=== PATIENT | male | born 1930 | race Caucasian/White ===

== ENCOUNTER 2016-05-21 13:09 | Emergency (ER) | payer OTHER, BC ==
[2016-05-21 13:26] VITALS: BP 103/61; PULSE 98; TEMP 98; BMI 20.9
--- NOTE | 2016-05-21 14:05 | PDOC ---
History of Present Illness - General History Source: Patient Exam Limitations: No Limitations, Physical Impairment (hearing impairment) - History of Present Illness Initial Comments: 05/21/16 14:53 The patient is a 85 year old male with a PMH of DM type 2, HTN and CKD who presents to ED referred from his PCP office. He has been complaining of lower extremity weakness. He states that his "legs give up lately". Two days ago he fell on the ground but didn't hit his head or injured himself. Today in AM he felt weak and had to sit down. He went to his PCP office and he was found to have BGM 79 and nl ECG. He denies chest pain, SOB, palpitations, dizziness. He denies numbness, paresthesia, headache. The pt denies LOC, dysuria, fever, chills. He is compliant with his medications and visits PCP every month. He lives alone. PCP Dr Wilson [phone] <Dulce Anderson - Last Filed: 05/21/16 16:57> <Christopher Casas - Last Filed: 05/21/16 17:04> - General Chief Complaint: Weakness Stated Complaint: FATIGUE, WHEEZING (LOW BLOOD PRESSURE) Time Seen by Provider: 05/21/16 14:04 Past History - Past Medical History Cardiac Disorders: Yes (NE) Dementia: Yes Diabetes: Yes Disorders: Yes (BPH) HTN: Yes - Surgical History Appendectomy: Yes Orthopedic Surgery: Yes (Right knee,Left hand) - Psycho/Social/Smoking Cessation Hx Anxiety: No Suicidal Ideation: No Smoking Status: No Smoking History: Former smoker Have you smoked in the past 12 months: No Number of Cigarettes Smoked Daily: 0 Information on smoking cessation initiated: No Hx Alcohol Use: No Drug/Substance Use Hx: No Hx Substance Use Treatment: No <Dulce Anderson - Last Filed: 05/21/16 16:57> <Christopher Casas - Last Filed: 05/21/16 17:04> - Past Medical History Allergies/Adverse Reactions: Allergies Allergy/AdvReac Type Severity Reaction Status Date / Time No Known Allergies Allergy Verified 05/21/16 13:27 Home Medications: Ambulatory Orders Aspirin Chewable [Ashu Children's Aspirin] 81 mg PO DAILY 03/25/11 Aspirin [Aspirin EC] 81 mg PO DAILY #0 tab.chew 03/26/11 Cyclobenzaprine HCl [Flexeril -] 10 mg PO TID #0 tablet 03/26/11 Dutasteride [Avodart] 0.5 mg PO DAILY 03/26/11 Glipizide [Glucotrol -] 10 mg PO BIDAC #0 tablet 03/26/11 Glipizide [Glucotrol] 10 mg PO BID 03/26/11 Metformin HCl [Glucophage] 500 mg PO ACBK #0 tablet 03/26/11 Simvastatin [Zocor -] 20 mg PO HS #0 tablet 03/26/11 Sitagliptin Phos/Metformin HCl [Janumet 50-1,000 mg Tablet] 1 each PO BID Sitagliptin Phosphate [Januvia] 50 mg PO ACBK #0 tablet 03/26/11 Valsartan [Diovan] 80 mg PO DAILY 03/26/11 Valsartan [Diovan] 80 mg PO DAILY #0 tablet 03/26/11 Review of Systems - Review of Systems Able to Perform ROS?: Yes Comments:: 05/21/16 15:05 REVIEW OF SYSTEMS CONSTITUTIONAL: Absent: fever, chills, diaphoresis HEENT: Absent: rhinorrhea, nasal congestion, throat pain, throat swelling, difficulty swallowing, visual changes CARDIOVASCULAR: Absent: chest pain, syncope, palpitations, irregular heart rate, lightheadedness , peripheral edema RESPIRATORY: Absent: cough, shortness of breath, dyspnea with exertion, orthopnea, wheezing GASTROINTESTINAL: Absent: abdominal pain, abdominal distension, nausea, vomiting, diarrhea, constipation, melena, hematochezia GENITOURINARY: Absent: dysuria, frequency, urgency, hesitancy, hematuria, flank pain, genital pain MUSCULOSKELETAL: Absent: myalgia, arthralgia, joint swelling, back pain, neck pain SKIN: Absent: rash, itching, pallor NEUROLOGIC: lower extremity weakness Absent: headache, focal weakness or paresthesias, dizziness seizure, mental status changes PSYCHIATRIC: Absent: anxiety, depression Is the patient limited Swazi proficient: No <Dulce Anderson - Last Filed: 05/21/16 16:57> *Physical Exam - Vital Signs Last Vital Signs Temp Pulse Resp BP Pulse Ox 98 F 98 H 18 103/61 99 05/21/16 13:22 05/21/16 13:22 05/21/16 13:22 05/21/16 13:22 05/21/16 13:22 - Physical Exam Comments: 05/21/16 15:09 GENERAL: The patient is awake, alert, and fully oriented, in no acute distress. HEAD: Normal with no signs of trauma. EYES: PERRL, extraocular movements intact, sclera anicteric, conjunctiva clear. No ptosis. ENT: Ears normal, nares patent, oropharynx clear without exudates, moist mucous membranes. NECK: Trachea midline, full range of motion, supple. LUNGS: Breath sounds equal, clear to auscultation bilaterally, no wheezes, no crackles, no accessory muscle use. HEART: Regular rate and rhythm, S1, S2 without murmur, rub or gallop. ABDOMEN: Soft, nontender, nondistended, normoactive bowel sounds, no guarding, no rebound. EXTREMITIES: no edema. NEUROLOGICAL: Normal speech, no facial asymmetry, Romberg negative, motor 5/5, sensation intact, gait not observed. PSYCH: Normal mood, normal affect. SKIN: Warm, dry, normal turgor, no rashes or lesions noted <Dulce Anderson - Last Filed: 05/21/16 16:57> - Vital Signs Last Vital Signs Temp Pulse Resp BP Pulse Ox 98 F 98 H 18 103/61 99 05/21/16 13:22 05/21/16 13:22 05/21/16 13:22 05/21/16 13:22 05/21/16 13:22 <Christopher Casas - Last Filed: 05/21/16 17:04> Heart Score/ECG Review - ECG Impressions Comment:: 05/21/16 17:03 Twelve-lead EKG was performed and reviewed by me. There is normal sinus rhythm with a normal rate. rate of 84 Left axis devation. no changes suggestive of acute ischemia <Christopher Casas - Last Filed: 05/21/16 17:04> ED Treatment Course - LABORATORY CBC & Chemistry Diagram: 05/21/16 15:00 05/21/16 15:00 <Dulce Anderson - Last Filed: 05/21/16 16:57> - LABORATORY CBC & Chemistry Diagram: 05/21/16 15:00 05/21/16 15:00 - ADDITIONAL ORDERS Additional order review: Laboratory Results 05/21/16 05/21/16 05/21/16 15:00 15:00 14:39 Sodium 139 Potassium 5.3 H Chloride 106 Carbon Dioxide 26 Anion Gap 7 L BUN 28 H Creatinine 1.9 H D Creat Clearance w eGFR 33.70 Random Glucose 232 H Calcium 9.1 Total Bilirubin 0.7 D AST 11 L D ALT 13 D Alkaline Phosphatase 79 Creatine Kinase 62 Troponin I 0.03 D < 0.02 Total Protein 6.9 Albumin 3.5 TSH 1.37 05/21/16 15:00 RBC 5.14 MCV 85.0 MCHC 33.3 RDW 13.8 MPV 8.2 - Medications Given in the ED: ED Medications Discontinued Medications Generic Name Dose Route Start Last Admin Trade Name Freq PRN Reason Stop Dose Admin Sodium Polystyrene Sulfonate 15 gm 05/21/16 16:25 05/21/16 16:50 Kayexalate - PO 05/21/16 16:26 15 gm ONCE ONE Administration <Christopher Casas - Last Filed: 05/21/16 17:04> Medical Decision Making - Medical Decision Making 05/21/16 15:10 The pt is a 85 male with a PMH of DM, CKD, HTN, who presents with LE weakness. We ordered CMP, CBC, cardiac profile, UA, TSH. Awaiting results. 05/21/16 16:34 We reviewed the results. His Cr is 1.9, close to his baseline and BUN is elevated. His K was elevated to 5.3. Ordered Kayoxelate 15 mg and NS. We called Dr. Silva and discussed. He recommended to discharge the pt from ED and f/u with his PCP as outpatient to check potassium. We informed the pt to drink fluids and continue taking his home medications. <Dulce Anderson - Last Filed: 05/21/16 16:57> *DC/Admit/Observation/Transfer - Discharge Dispostion Admit: No <Dulce Anderson - Last Filed: 05/21/16 16:57> <Christopher Casas - Last Filed: 05/21/16 17:04> Diagnosis at time of Disposition: Weakness - Discharge Dispostion Disposition: HOME Condition at time of disposition: Improved - Referrals Referrals: Honey Wilson MD [Non Staff, Medical] - - Patient Instructions Additional Instructions: Continue taking your home medications. Please see your primary care physician on Tuesday. Stay hydrated over the weekend. Drink plenty of fluids. If your symptoms worsen come back to emergency room as soon as possible.
--- NOTE | 2016-05-21 14:32 | PDOC ---
Attending Attestation - Resident Resident Name: Dulce Anderson - ED Attending Attestation I have performed the following: I have examined & evaluated the patient, The case was reviewed & discussed with the resident, I agree w/resident's findings & plan - HPI HPI: 05/21/16 16:59 85y M hx of DM2, htn, ckd referred from pcp for weakness. Pt states that when he is ambulating, he will feel like his legs are weak and his legs give out. He does state that he has pain in his L knee bu that is chronic. He denies any dizziness, headache numnbess/tingling/weakness, fever/chills, dyruia, cough, chest pain, back pain. he went to his PMD who checked his BGM and it was 79 and he was sent to the ED for evaluation. the pts exam is unremarkable. pts labs reiewed - cr at baseline. k+ slightly elevated, will give some kayexalate ekg unremarkble discussed wit hdr. marquez - will obtain 2nd trop, if neg will d/c the pt with pmd fu on tuesday - Physicial Exam PE: 05/24/16 20:08 see above - Medical Decision Making 05/24/16 20:08 see above
[2016-05-21 15:16] LABS: MCH 28.3 pg (25.7-33.7); MCHC 33.3 g/dl (32.0-35.9); MEAN PLT VOLUME 8.2 fl (7.5-11.1); PLATELET COUNT 238 K/MM3 (134-434); RDW 13.8 % (11.9-15.9); WHITE BLOOD COUNT 9.7 K/mm3 (4.0-10.0)
[2016-05-21 15:44] LABS: TROPONIN I 0.03 ng/ml (0.00-0.05)
[2016-05-21 15:52] LABS: ALBUMIN 3.5 g/dl (3.4-5.0); BILIRUBIN,TOTAL 0.7 mg/dL (0.2-1.0); CALCIUM 9.1 mg/dL (8.5-10.1); CREATININE 1.9 mg/dL (0.7-1.3); TOT PROT 6.9 g/dl (6.4-8.2)
[2016-05-21 16:00] LABS: THYROID STIMULATING HORMONE 1.37 uIU/ml (0.358-3.74)
[2016-05-21] MEDS ORDERED: SODIUM CHLORIDE 1,000 ML IV STA (16:11)
[2016-05-21] MEDS ORDERED: SODIUM POLYSTYRENE SULFONATE 15 GM/60 ML BOTTLE PO ONE (16:25)
[2016-05-21] MEDS ORDERED: INSULIN SLIDING SCALE (NOVOLOG) 1 VIAL SQ SCH (16:30)
[2016-05-21] MEDS ORDERED: SODIUM POLYSTYRENE SULFONATE 15 GM/60 ML BOTTLE ONE (16:55)
[2016-05-21 17:33] LABS: URINE APPEARANCE CLEAR; URINE BILIRUBIN NEGATIVE (NEGATIVE); URINE BLOOD NEGATIVE (NEGATIVE); URINE COLOR DKYELLOW; URINE GLUCOSE (UA) 1+ (NEGATIVE); URINE KETONE TRACE (NEGATIVE); URINE NITRITE NEGATIVE (NEGATIVE); URINE UROBILINOGEN 2.0 E.U/dl E.U./dl (0.2-1.0)
[2016-05-21 17:34] LABS: URINE LEUK ESTERASE 1+ (NEGATIVE); URINE PROTEIN 2+ (NEGATIVE)
[2016-05-21 17:37] LABS: URINE BACTERIA RARE /hpf (NONE SEEN); URINE HYALINE CAST 23 /lpf; URINE MUCUS RARE; URINE RBC 2 /hpf (0-3); URINE WBC 14 /hpf (3-5)
--- NOTE | 2016-05-23 11:18 | EKG ---
Test Reason : Blood Pressure : / mmHG Vent. Rate : 084 BPM Atrial Rate : 084 BPM P-R Int : 188 ms QRS Dur : 092 ms QT Int : 386 ms P-R-T Axes : 057 -33 035 degrees QTc Int : 456 ms NORMAL SINUS RHYTHM LEFT AXIS DEVIATION ABNORMAL ECG WHEN COMPARED WITH ECG OF 26-MAR-2011 01:17, NO SIGNIFICANT CHANGE WAS FOUND Confirmed by FIGUEROA KIRK MD ([id number]) on 05/23/2016 11:18:10 AM Referred By: Confirmed By:FIGUEROA KIRK MD
== END 2016-05-21 18:35 | disposition home or self-care (01) ==
LOC: JER 13:09
PROC: 3E0337Z Introduction of Electrolytic and Water Balance Substance into Peripheral Vein, Percutaneous Approach (ICD-10-PCS; principal; 2016-05-21)
DX: M62.81 Muscle weakness (generalized) (principal); E87.5 Hyperkalemia; I10 Essential (primary) hypertension; E11.9 Type 2 diabetes mellitus without complications; Z79.84 Long term (current) use of oral hypoglycemic drugs; F03.90 Unspecified dementia, unspecified severity, without behavioral disturbance, psychotic disturbance, mood disturbance, and anxiety; I25.2 Old myocardial infarction
CPT/HCPCS: 36415; 80053; 81003; 81015; 82550; 84443; 84484; 85027; 93005; 93010; 96360; 99284-25

== ENCOUNTER 2017-01-11 15:34 | Emergency (ER) | payer OTHER, BC ==
--- NOTE | 2017-01-11 15:47 | PDOC ---
History of Present Illness - General Chief Complaint: Blood Sugar Problem Stated Complaint: SUGAR PROBLEM Time Seen by Provider: 01/11/17 15:39 - History of Present Illness Initial Comments: 01/11/17 16:20 The patient is an 86 year old male with a history of DM, HTN, CAD, dementia who presents for evaluation of high blood sugar. The patient is brought in by EMS who assist in providing the history. They report that the patient's home health aid checked the patient's blood sugar and it was elevated to 570 prompting the home health aid to call EMS for presentation to the ED. The patient currently denies any complaints and denies fevers, chills, SOB, chest pain, nausea, vomiting, abdominal pain, or changes with urination or bowel movements. Past History - Past Medical History Allergies/Adverse Reactions: Allergies Allergy/AdvReac Type Severity Reaction Status Date / Time No Known Allergies Allergy Verified 01/11/17 15:50 Home Medications: Ambulatory Orders Donepezil HCl [Aricept -] 5 mg PO DAILY 01/11/17 Insulin (Levemir) [Levemir Flexpen -] 22 units SQ HS 01/11/17 Insulin Lispro [Humalog] 6 unit SQ TID 01/11/17 Ramipril 2.5 mg PO DAILY 01/11/17 Cardiac Disorders: Yes (PR) Dementia: Yes Diabetes: Yes Disorders: Yes (BPH) HTN: Yes - Surgical History Appendectomy: Yes Orthopedic Surgery: Yes (Right knee,Left hand) - Suicide/Smoking/Psychosocial Hx Smoking Status: No Smoking History: Former smoker Have you smoked in the past 12 months: No Number of Cigarettes Smoked Daily: 0 Hx Alcohol Use: No Drug/Substance Use Hx: No Hx Substance Use Treatment: No Review of Systems - Review of Systems Comments:: 01/11/17 16:23 Constitutional: No fevers, chills, fatigue, malaise HEENT: No Rhinorrhea, nasal congestion, Cardiovascular: No chest pain, syncope, palpitations, lightheadedness Respiratory: No Cough, SOB, Hemoptysis, Gastrointestinal: No Abdominal pain, Nausea, Vomiting, Constipation, Diarrhea, Melena Genitourinary: No Dysuria, Frequency, Urgency, Hesitancy, Hematuria, Flank pain Musculoskeletal: No Myalgia, arthralgia Skin: No rashes, bruising, pallor Neurologic: No Headache, Dizziness, Numbness, Weakness, or Tingling Psychiatric: No Hallucinations. No SI or HI *Physical Exam - Physical Exam Comments: 01/11/17 16:23 General Appearance: Nourished. No Apparent Distress HEENT: EOMI, LUDIVINA. No Pharyngeal Erythema, Tonsillar Exudate, Tonsillar Erythema Neck: No Cervical Lymphadenopathy Respiratory/Chest: Lungs Clear, Normal Breath Sounds. No Crackles, Rales, Rhonchi, Wheezing Cardiovascular: Regular Rhythm, Regular Rate. No Murmur, Gallops, Rubs Gastrointestinal/Abdominal: Normal Bowel Sounds, Soft. No Guarding, Rebound, Tenderness Musculoskeletal: No CVA Tenderness Extremity: Normal Capillary Refill Integumentary: Normal Color, Dry, Warm Neurologic: water inspector II-XII NML intact, Fully Oriented, Alert, Normal Mood/Affect, Normal Response, ED Treatment Course - LABORATORY CBC & Chemistry Diagram: 01/11/17 16:08 01/11/17 16:08 Medical Decision Making - Medical Decision Making 01/11/17 16:24 The patient is an 86 year old male with a history of DM, HTN, CAD, dementia who presents for evaluation of high blood sugar. Differential includes but is not limited to: DKA, HHS, Hyperglycemia, infectious, metabolic derangement. Given the patient's lack of complaints and normal physical exam, it is likely he is hyperglycemic. We will obtain a cbc, cmp, vbg, acetone, UA to evaluate for DKA or HHS and other etiologies. We will start the patient on IV fluids and continue to monitor and reassess. 01/11/17 18:26 CBC, vbg, acetone are unremarkable. CMP demonstrates a glucose in 400s. UA is still pending. Repeat finger stick after 1 L of NS is 414. We will administer 10 Units of SQ insulin here in the ED and continue to monitor and reassess. 01/11/17 18:43 Pt's friend Mr. Escobedo was present earlier and asked to be called if anything is needed for the pt including transportation home. He can be contacted at *DC/Admit/Observation/Transfer Diagnosis at time of Disposition: Hyperglycemia - Discharge Dispostion Disposition: HOME Condition at time of disposition: Improved Admit: No - Referrals Referrals: Karthik Harmon MD [Primary Care Provider] - - Patient Instructions Printed Discharge Instructions: DI for Hyperglycemia -- Adult Additional Instructions: Please return to the ER if you experience concerning or worsening symptoms including fevers, chills, difficulty breathing, chest pain, or vomiting. You were seen in the ER for high blood sugar. Your lab results were normal here in the ER. You will need to continue taking your insulin at home as well as all your medications. It is extremely important that you call your primary care provider to make an appointment in 2-3 days to discuss further management of your diabetes.
[2017-01-11 15:50] VITALS: BMI 21.7
[2017-01-11] MEDS ORDERED: SODIUM CHLORIDE 1,000 ML IV STA ×2 (15:50→18:18)
[2017-01-11 16:19] LABS: BASOPHIL 0.5 % (0-2.0); EOSINOPHIL 1.5 % (0-4.5); MCHC 33.3 g/dl (32.0-35.9); MEAN PLT VOLUME 7.8 fl (7.5-11.1); NEUTROPHILS 71.2 % (42.8-82.8); PLATELET COUNT 204 K/MM3 (134-434); RDW 13.8 % (11.9-15.9); WHITE BLOOD COUNT 6.7 K/mm3 (4.0-10.0)
[2017-01-11 16:28] LABS: VENOUS PH 7.28 (7.32-7.42)
[2017-01-11 16:29] LABS: VENOUS BLOOD GAS HCO3 25.1 meq/L (19-25)
[2017-01-11 16:46] LABS: ALBUMIN 3.7 g/dl (3.4-5.0); ANION GAP 10 (8-16); BILIRUBIN,TOTAL 0.4 mg/dL (0.2-1.0); CALCIUM 8.9 mg/dL (8.5-10.1); CO2 25 mmol/L (21-32); CREATININE 1.7 mg/dL (0.7-1.3); SGOT/AST 6 U/L (15-37); SGPT/ALT 15 U/L (12-78); TOT PROT 7.4 g/dl (6.4-8.2)
[2017-01-11 16:48] LABS: ALK PHOS 102 U/L (45-117)
[2017-01-11 16:52] LABS: GLUCOSE,RANDOM 472 mg/dL (74-106)
[2017-01-11 17:42] VITALS: BP 162/89; PULSE 69; TEMP 97.8
[2017-01-11 18:11] LABS: URINE APPEARANCE CLEAR; URINE BILIRUBIN NEGATIVE (NEGATIVE); URINE BLOOD NEGATIVE (NEGATIVE); URINE COLOR STRAW; URINE GLUCOSE (UA) 3+ (NEGATIVE); URINE KETONE NEGATIVE (NEGATIVE); URINE NITRITE NEGATIVE (NEGATIVE); URINE PROTEIN NEGATIVE (NEGATIVE); URINE UROBILINOGEN NEGATIVE mg/dL (0.2-1.0)
[2017-01-11] MEDS ORDERED: INSULIN REGULAR HUMAN 100 UNITS/ML *VIAL SQ ONE (18:18)
[2017-01-11] MEDS ORDERED: INSULIN REGULAR HUMAN 100 UNITS/ML *VIAL ONE (18:24)
--- NOTE | 2017-01-11 19:19 | PDOC ---
Attending Attestation - Resident Resident Name: Gilberto Gongel - ED Attending Attestation I have performed the following: I have examined & evaluated the patient, The case was reviewed & discussed with the resident, I agree w/resident's findings & plan, Exceptions are as noted - HPI HPI: 01/11/17 19:17 86 YO MALE was seen by VN and he was found to have elevated glucose -pt has no complaints -acetone negative ,pt not in DKA -no nausea,no fever,no abd pain ,no chest pain - Physicial Exam PE: 01/12/17 02:25 86-year-old male in no acute distress. Head normocephalic, atraumatic Neck supple Lungs clear to auscultation bilaterally CVS regular rate and rhythm S1, S2 Abdomen soft, nontender, nondistended. Extremities no deformity. Skin warm and dry. Neuro patient is alert and conversant, moving all extremities - Medical Decision Making 01/12/17 02:26 Patient was not found to be in diabetic ketoacidosis. He is acetone negative. He was given insulin for his elevated glucose and a family friend picked him up and took him home
[2017-01-11 21:25] LABS: URINE LEUK ESTERASE Negative (NEGATIVE)
--- NOTE | 2017-01-14 11:21 | EKG ---
Test Reason : Blood Pressure : / mmHG Vent. Rate : 078 BPM Atrial Rate : 078 BPM P-R Int : 190 ms QRS Dur : 094 ms QT Int : 408 ms P-R-T Axes : 050 -35 030 degrees QTc Int : 465 ms SINUS RHYTHM WITH PREMATURE ATRIAL COMPLEXES LEFT AXIS DEVIATION INCOMPLETE RIGHT BUNDLE BRANCH BLOCK ABNORMAL ECG WHEN COMPARED WITH ECG OF 21-MAY-2016 15:16, PREMATURE ATRIAL COMPLEXES ARE NOW PRESENT INCOMPLETE RIGHT BUNDLE BRANCH BLOCK IS NOW PRESENT Confirmed by BILLIE ALLEN MD ([id number]) on 01/14/2017 11:20:55 AM Referred By: Confirmed By:BILLIE ALLEN MD
== END 2017-01-11 19:26 | disposition home or self-care (01) ==
LOC: JER 15:34
PROC: 3E0337Z Introduction of Electrolytic and Water Balance Substance into Peripheral Vein, Percutaneous Approach (ICD-10-PCS; principal; 2017-01-11)
PROC: 3E013VG Introduction of Insulin into Subcutaneous Tissue, Percutaneous Approach (ICD-10-PCS; 2017-01-11)
DX: E11.65 Type 2 diabetes mellitus with hyperglycemia (principal); I25.10 Atherosclerotic heart disease of native coronary artery without angina pectoris; I10 Essential (primary) hypertension; Z79.4 Long term (current) use of insulin; F03.90 Unspecified dementia, unspecified severity, without behavioral disturbance, psychotic disturbance, mood disturbance, and anxiety; N40.0 Benign prostatic hyperplasia without lower urinary tract symptoms; I25.2 Old myocardial infarction
CPT/HCPCS: 36415; 80053; 81003; 82009; 82803; 85025; 93005; 93010; 96360; 96372; 99284-25

== ENCOUNTER 2017-04-30 15:29 | Observation (INO) | payer BC, OTHER ==
--- NOTE | 2017-04-30 15:36 | PDOC ---
History of Present Illness - General Stated Complaint: LOW BLOOD SUGAR - History of Present Illness Initial Comments: 04/30/17 15:36 Mr. Clark is an 86 yo male w/ pmh of DM, HTN, CAD, dementia BIBA after he was found down outside. Per EMS a passing bystander noticed him wedged between a car and the curb and activated the EMS system. On arrival he was found to have a blood glucose of 27. Oral glucose was given and repeat check yielded a value of 41. After this they gave 250mL of D10 and found repeat BS of 186. On arrival to the ER his glucose was 77. Mr. Clark reports that he took his insulin this morning as well as this afternoon without eating in between. He currently has no complaints; reports falling but denies hitting his head or LOC. The patient denies chest pain, shortness of breath, headache and dizziness. Denies fever, chills, nausea, vomit, diarrhea and constipation. Denies dysuria, frequency, urgency and hematuria. Allergies: NKDA Past History - Past Medical History Allergies/Adverse Reactions: Allergies Allergy/AdvReac Type Severity Reaction Status Date / Time No Known Allergies Allergy Verified 01/11/17 15:50 Home Medications: Ambulatory Orders Donepezil HCl [Aricept -] 5 mg PO DAILY 01/11/17 Insulin (Levemir) [Levemir Flexpen -] 22 units SQ HS 01/11/17 Insulin Lispro [Humalog] 6 unit SQ TID 01/11/17 Ramipril 2.5 mg PO DAILY 01/11/17 Cardiac Disorders: Yes (VT) COPD: No Dementia: Yes Diabetes: Yes Disorders: Yes (BPH) HTN: Yes - Surgical History Appendectomy: Yes Orthopedic Surgery: Yes (Right knee,Left hand) - Suicide/Smoking/Psychosocial Hx Smoking Status: No Smoking History: Former smoker Have you smoked in the past 12 months: No Number of Cigarettes Smoked Daily: 0 Hx Alcohol Use: No Drug/Substance Use Hx: No Substance Use Type: None Hx Substance Use Treatment: No Review of Systems - Review of Systems Comments:: 04/30/17 15:41 GENERAL/CONSTITUTIONAL: +Patient endorses weakness earlier today and fall after his 2nd insulin dose. No fever or chills. Denies Head injury or LOC. HEAD, EYES, EARS, NOSE AND THROAT: No change in vision. No ear pain or discharge. No sore throat. CARDIOVASCULAR: No chest pain or shortness of breath RESPIRATORY: No cough, wheezing, or hemoptysis. GASTROINTESTINAL: No nausea, vomiting, diarrhea or constipation. GENITOURINARY: No dysuria, frequency, or change in urination. MUSCULOSKELETAL: No joint or muscle swelling or pain. No neck or back pain. SKIN: No rash NEUROLOGIC: No headache, vertigo, loss of consciousness, or change in strength/ sensation. ENDOCRINE: No increased thirst. No abnormal weight change HEMATOLOGIC/LYMPHATIC: No anemia, easy bleeding, or history of blood clots. ALLERGIC/IMMUNOLOGIC: No hives or skin allergy. *Physical Exam - Physical Exam Comments: 04/30/17 15:42 GENERAL: Awake, alert, and fully oriented, in no acute distress HEAD: No signs of trauma, normocephalic, atraumatic EYES: PERRLA, EOMI, sclera anicteric, conjunctiva clear ENT: Auricles normal inspection, hearing grossly normal, nares patent, oropharynx clear without exudates. Moist mucosa NECK: Normal ROM, supple, no lymphadenopathy, JVD, or masses LUNGS: No distress, speaks full sentences, clear to auscultation bilaterally HEART: Regular rate and rhythm, normal S1 and S2, no murmurs, rubs or gallops, peripheral pulses normal and equal bilaterally. ABDOMEN: Soft, nontender, normoactive bowel sounds. No guarding, no rebound. No masses EXTREMITIES: Normal inspection, Normal range of motion, no edema. No clubbing or cyanosis. NEUROLOGICAL: Cranial nerves II through XII grossly intact. Normal speech, normal gait, no focal sensorimotor deficits SKIN: Warm, Dry, normal turgor, no rashes or lesions noted. ED Treatment Course - LABORATORY CBC & Chemistry Diagram: 05/01/17 06:00 05/01/17 06:00 Medical Decision Making - Medical Decision Making 04/30/17 15:55 Mr. Clark is an 86 yo male w/ pmh as described who presents following hypoglycemic episode. Patient resting comfortably. CBC/CMP/Head CT/UA/EKG sent for evaluation. Patient given sandwich and orange juice to maintain glucose load. 04/30/17 18:04 UA revealed slight UTI. Rocephin given for treatment. 04/30/17 18:17 Repeat finger stick 225. 04/30/17 18:43 Patient signed out to Dr. Smith for further care. *DC/Admit/Observation/Transfer Diagnosis at time of Disposition: UTI (urinary tract infection) Qualifiers: Urinary tract infection type: site unspecified Hematuria presence: without hematuria Qualified Code(s): N39.0 - Urinary tract infection, site not specified - Discharge Dispostion Condition at time of disposition: Stable - Referrals - Patient Instructions - Post Discharge Activity
--- NOTE | 2017-04-30 15:45 | PDOC ---
Attending Attestation - Resident Resident Name: De Larsen - ED Attending Attestation I have performed the following: I have examined & evaluated the patient, The case was reviewed & discussed with the resident, I agree w/resident's findings & plan, Exceptions are as noted - HPI HPI: 04/30/17 15:44 86y M IDDM presents with complaint of hypoglycemia. Pt was found down by his car by bystander who called EMS. EMS found the pt a bit altered with BGM of 27, gave oral glucose improved to 41s and given D10 with improvement of blood sugar to 186. Hre his BGM was 70s. Pt denies any cp, sob, abd pain, n/v, dirarhea, dysuria, fever/chills, cough. States he feels 'great' right now. Pt unabl to tell me why he didnt eat this morning, but states no one told him that he that he should eat after he took insulin. GENERAL: The patient is awake, alert and oriented x 2, Nontoxic - in no acute distress. dischevelled appearing HEAD: Normocephalic, atraumatic without focal tenderness. EYES: extraocular movements intact, sclera anicteric, conjunctiva clear. ENT: Normal voice, Moist mucous membranes. NECK: Normal range of motion, supple. LUNGS: Breath sounds equal, clear to auscultation bilaterally. No wheezes, no rhonchi, no rales. HEART: Regular rate and rhythm, normal S1 and S2 without murmur, rub or gallop. ABDOMEN: Soft, nontender, normoactive bowel sounds. No guarding, no rebound. No CVA tenderness EXTREMITIES: Normal range of motion, no edema. moving all 4 extremities spontaneously and symmetrically. MSK: no focal midline tenderness in cervical/thoracic/lumbar region. NEUROLOGICAL: No facial assymetry, Normal speech, PSYCH: Normal mood, normal affect. SKIN: Warm, Dry, normal turgor, Suspect his hypoglycmia secondary to his insulin use without eating will ck labs, ua to r/o metabolic derangement, occult infectoin pt given complex carbs via sandwich will obs the tp to make sure he is able to maintain his blood sugar - Physicial Exam PE: 05/01/17 16:14 see above - Medical Decision Making 05/01/17 16:14 see above Heart Score/ECG Review - ECG Impressions Comment:: 04/30/17 16:41 Twelve-lead EKG was performed and reviewed by me. There is normal sinus rhythm with a rate of [address] deviation No [address] changes suggestive of acute ischemia
[2017-04-30 16:40] LABS: BASO % 0.5 % (0-2.0); EOS % 0.3 % (0-4.5); HEMOGLOBIN 14.7 GM/dL (11.7-16.9); LYMPH % 8.7 % (8-40); MCH 28.4 pg (25.7-33.7); MCHC 33.3 g/dl (32.0-35.9); MEAN CELL VOLUME 85.3 fl (80-96); MEAN PLT VOLUME 7.8 fl (7.5-11.1); MONO % 5.2 % (3.8-10.2); NEUT % 85.3 % (42.8-82.8); PLATELET COUNT 199 K/MM3 (134-434); RBC 5.16 M/mm3 (4.00-5.60); RDW 14.1 % (11.9-15.9); WHITE BLOOD COUNT 11.4 K/mm3 (4.0-10.0)
[2017-04-30 16:59] LABS: URINE APPEARANCE CLEAR; URINE BILIRUBIN NEGATIVE (NEGATIVE); URINE BLOOD 1+ (NEGATIVE); URINE COLOR YELLOW; URINE GLUCOSE (UA) 1+ (NEGATIVE); URINE KETONE NEGATIVE (NEGATIVE); URINE NITRITE POSITIVE (NEGATIVE)
[2017-04-30 17:00] LABS: URINE LEUK ESTERASE 1+ (NEGATIVE); URINE PROTEIN 2+ (NEGATIVE)
[2017-04-30 17:02] LABS: EPI CELLS RARE /HPF (FEW); URINE BACTERIA RARE /hpf (NONE SEEN); URINE HYALINE CAST 2 /lpf; URINE MUCUS FEW
[2017-04-30 17:08] LABS: ALBUMIN 3.5 g/dl (3.4-5.0); ALK PHOS 81 U/L (45-117); ANION GAP 9 (8-16); BILIRUBIN,TOTAL 0.5 mg/dL (0.2-1.0); BLOOD UREA NITROGEN 17 mg/dL (7-18); CHLORIDE 107 mmol/L (98-107); CO2 25 mmol/L (21-32); CREATININE 1.6 mg/dL (0.7-1.3); GLUCOSE,RANDOM 198 mg/dL (74-106); POTASSIUM 3.9 mmol/L (3.5-5.1); SGOT/AST 11 U/L (15-37); SGPT/ALT 14 U/L (12-78); SODIUM 141 mmol/L (136-145); TOT PROT 7.1 g/dl (6.4-8.2)
[2017-04-30] MEDS ORDERED: cefTRIAXone 1 GM/50 ML BAG (PRE-DOCKED) IVPB ONE (17:54)
[2017-04-30] MEDS ORDERED: CEFTRIAXONE 1 GM/50 ML BAG ONE (18:18)
--- NOTE | 2017-04-30 20:40 | PDOC ---
*Physical Exam - Vital Signs Last Vital Signs Temp Pulse Resp BP Pulse Ox 98 F 87 20 143/92 99 04/30/17 19:08 04/30/17 19:08 04/30/17 19:08 04/30/17 19:08 04/30/17 19:08 - Physical Exam Comments: 04/30/17 21:14 GENERAL: Awake, alert, in no acute distress, eating happily HEAD: No signs of trauma, normocephalic, atraumatic EYES: PERRLA, EOMI, sclera anicteric, conjunctiva clear ENT: Auricles normal inspection, hearing grossly normal, nares patent, oropharynx clear without exudates. Moist mucosa NECK: Normal ROM, supple, no lymphadenopathy, JVD, or masses LUNGS: No distress, speaks full sentences, clear to auscultation bilaterally HEART: Regular rate and rhythm, normal S1 and S2, no murmurs, rubs or gallops, peripheral pulses normal and equal bilaterally. SKIN: Warm, Dry, normal turgor, no rashes or lesions noted. ED Treatment Course - LABORATORY CBC & Chemistry Diagram: 04/30/17 16:37 04/30/17 16:37 - ADDITIONAL ORDERS Additional order review: Laboratory Results 04/30/17 04/30/17 04/30/17 18:16 16:43 16:37 Sodium 141 Potassium 3.9 D Chloride 107 Carbon Dioxide 25 Anion Gap 9 BUN 17 D Creatinine 1.6 H Creat Clearance w eGFR 41.00 POC Glucometer 255.33118 Random Glucose 198 H D Calcium 9.0 Total Bilirubin 0.5 D AST 11 L D ALT 14 Alkaline Phosphatase 81 D Total Protein 7.1 Albumin 3.5 Urine Color Yellow Urine Appearance Clear Urine pH 5.0 Ur Specific [place] 1.016 Urine Protein 2+ H Urine Glucose (UA) 1+ H Urine Ketones Negative Urine Blood 1+ H Urine Nitrite Positive Urine Bilirubin Negative Urine Urobilinogen 2.0 Ur Leukocyte Esterase 1+ H Urine WBC (Auto) 21 Urine RBC (Auto) <1 Ur Epithelial Cells Rare Urine Bacteria Rare Hyaline Casts 2 Urine Mucus Few 04/30/17 15:36 Sodium Potassium Chloride Carbon Dioxide Anion Gap BUN Creatinine Creat Clearance w eGFR POC Glucometer 77.68443 Random Glucose Calcium Total Bilirubin AST ALT Alkaline Phosphatase Total Protein Albumin Urine Color Urine Appearance Urine pH Ur Specific [place] Urine Protein Urine Glucose (UA) Urine Ketones Urine Blood Urine Nitrite Urine Bilirubin Urine Urobilinogen Ur Leukocyte Esterase Urine WBC (Auto) Urine RBC (Auto) Ur Epithelial Cells Urine Bacteria Hyaline Casts Urine Mucus 04/30/17 04/30/17 04/30/17 18:16 16:37 15:36 RBC 5.16 MCV 85.3 MCHC 33.3 RDW 14.1 MPV 7.8 Neutrophils % 85.3 H Lymphocytes % 8.7 D Monocytes % 5.2 Eosinophils % 0.3 Basophils % 0.5 POC Glucometer 255.03210 77.77458 - RADIOLOGY Radiology Studies Ordered: Category Date Time Status CXRPORT [CHEST X-RAY PORTABLE*] [RAD] Stat Radiology 04/30/17 18:52 Taken - Medications Given in the ED: ED Medications Discontinued Medications Generic Name Dose Route Start Last Admin Trade Name Freq PRN Reason Stop Dose Admin Ceftriaxone Sodium 1 gm 04/30/17 17:54 04/30/17 18:19 Rocephin 1gm Ivpb (Pre-Docked) IVPB 04/30/17 17:55 1 gm ONCE ONE Administration Protocol Medical Decision Making - Medical Decision Making 04/30/17 20:[address] Larsen. Patient is 86M with history of DM, HTN, CAD , dementia BIBA after he was found down outside confused with blood sugar of 27. Patient normally lives at home with an aide coming by to help. Patient also has UTI, given rocephin. CT pending. Will admit. Dr Roldan accepted admission to obs med/surg. 04/30/17 21:[address] Randhawa regarding patient. 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 Patient has no tenderness in ear , mastoid, head or neck. Patient states that he has no pain and feels fine. Do not believe patient has mastoiditis clinically. Will continue to treat with just ceftriaxone. Imaging results discussed with medicine resident. *DC/Admit/Observation/Transfer Diagnosis at time of Disposition: UTI (urinary tract infection) - Discharge Dispostion Condition at time of disposition: Stable Admit: Yes - Referrals - Patient Instructions - Post Discharge Activity
--- NOTE | 2017-04-30 22:30 | HP ---
CHIEF COMPLAINT: weakness PCP:none HISTORY OF PRESENT ILLNESS: The patient is a 85 year old male with a PMH of DM type 2, HTN and CKD who presents to ED brought by ambulance after he was found outside. The pt left his house but somebody noticed him loosing his balance and slumping over the car next to him. He states that it happened to him many times in the past. Today he took his morning insulin but didn't have anything to eat. He denies hitting his head, any other injury, LOC, seizures, urinating, tongue biting, dizziness, palpitations. He denies chest pain, SOB, palpitations, dizziness. On EMS arrival his fingerstick was 27, after glucose went up to 41. He was given dextrose that improved his sugar to 186. The pt denies dysuria, fever, chills. He is compliant with taking 18 units of Insulin twice a day. No other medications and he is currently not following any primary care doctor. He lives alone and was told that he needs to use walker. ER course was notable for: (1)CT head, CXR (2)WBC 11.4 (3)UA 1+ leuk est, 21 WBC Recent Travel:no PAST MEDICAL HISTORY: as above PAST SURGICAL HISTORY: right knee replacement Social History: Smoking:quit 20 years ago Alcohol:no Drugs:no Lives alone, gets help from 2 sons and daughter. Denies VNS. Family History: Father due to [place] at age 42, Mother: doesn't remember her cause of Allergies No Known Allergies Allergy (Verified 01/11/17 15:50) HOME MEDICATIONS: Home Medications Medication Instructions Recorded Donepezil HCl [Aricept -] 5 mg PO DAILY 01/11/17 Insulin (Levemir) [Levemir Flexpen 22 units SQ HS 01/11/17 -] Insulin Lispro [Humalog] 6 unit SQ TID 01/11/17 Ramipril 2.5 mg PO DAILY 01/11/17 REVIEW OF SYSTEMS CONSTITUTIONAL: Absent: fever, chills, diaphoresis, generalized weakness, malaise HEENT: Absent: rhinorrhea, nasal congestion, throat pain, throat swelling, difficulty swallowing CARDIOVASCULAR: Absent: chest pain, syncope, palpitations, irregular heart rate, lightheadedness , RESPIRATORY: Absent: cough, shortness of breath, dyspnea with exertion, orthopnea, wheezing, GASTROINTESTINAL: Absent: abdominal pain, abdominal distension, nausea, vomiting, diarrhea, constipation, GENITOURINARY: Absent: dysuria, frequency, urgency, hesitancy, hematuria, flank pain, genital pain MUSCULOSKELETAL: Absent: myalgia, arthralgia, joint swelling, back pain, neck pain HEMATOLOGIC/IMMUNOLOGIC: Absent: easy bleeding, easy bruising, lymphadenopathy, frequent infections ENDOCRINE: Absent: unexplained weight gain, unexplained weight loss, NEUROLOGIC: Absent: headache, focal weakness or paresthesias, dizziness PSYCHIATRIC: Absent: anxiety, depression PHYSICAL EXAMINATION Vital Signs - 24 hr 04/30/17 04/30/17 04/30/17 15:46 17:30 19:08 Temperature 97 F L 98 F Pulse Rate 93 H Pulse Rate [ 85 87 Apical] Respiratory 20 20 20 Rate Blood Pressure 197/85 Blood Pressure 147/85 143/92 [Right Arm] O2 Sat by Pulse 97 100 99 Oximetry (%) 04/30/17 21:25 Temperature 98.1 F Pulse Rate Pulse Rate [ 85 Apical] Respiratory 20 Rate Blood Pressure Blood Pressure 156/90 [Right Arm] O2 Sat by Pulse 98 Oximetry (%) GENERAL: Awake, alert, and fully oriented, in no acute distress. HEAD: Normal with no signs of trauma, no tenderness, abrasions. EYES: Pupils equal, round and reactive to light, extraocular movements intact, sclera anicteric, conjunctiva clear. EARS, NOSE, THROAT: Ears normal, no discharge, no tenderness, nares patent, oropharynx clear without exudates. Moist mucous membranes. NECK: Normal range of motion, supple without lymphadenopathy. LUNGS: Breath sounds equal, clear to auscultation bilaterally. No wheezes, and no crackles. No accessory muscle use. HEART: Regular rate and rhythm, normal S1 and S2, 3/6 systolic murmur over right second sternal border,no rub or gallop. ABDOMEN: Soft, nontender, not distended, normoactive bowel sounds, no guarding, no rebound, no masses. MUSCULOSKELETAL: Normal range of motion at all joints. No bony deformities or tenderness. No CVA tenderness. UPPER EXTREMITIES: 2+ pulses, warm, no peripheral edema. LOWER EXTREMITIES: 2+ pulses, warm, no peripheral edema. NEUROLOGICAL: Normal speech, no facial asymmetry, motor 5/5, no sensation changes. PSYCHIATRIC: Cooperative. Good eye contact. Appropriate mood and affect. SKIN: Warm, dry, normal turgor, no rashes or lesions noted. Laboratory Results - last 24 hr 04/30/17 04/30/17 04/30/17 15:36 16:37 16:37 WBC 11.4 H D RBC 5.16 Hgb 14.7 Hct 44.0 MCV 85.3 MCH 28.4 MCHC 33.3 RDW 14.1 Plt Count 199 MPV 7.8 Neutrophils % 85.3 H Lymphocytes % 8.7 D Monocytes % 5.2 Eosinophils % 0.3 Basophils % 0.5 Sodium 141 Potassium 3.9 D Chloride 107 Carbon Dioxide 25 Anion Gap 9 BUN 17 D Creatinine 1.6 H Creat Clearance w eGFR 41.00 POC Glucometer 77.97869 Random Glucose 198 H D Calcium 9.0 Total Bilirubin 0.5 D AST 11 L D ALT 14 Alkaline Phosphatase 81 D Total Protein 7.1 Albumin 3.5 Urine Color Urine Appearance Urine pH Ur Specific [place] Urine Protein Urine Glucose (UA) Urine Ketones Urine Blood Urine Nitrite Urine Bilirubin Urine Urobilinogen Ur Leukocyte Esterase Urine WBC (Auto) Urine RBC (Auto) Ur Epithelial Cells Urine Bacteria Hyaline Casts Urine Mucus 04/30/17 04/30/17 04/30/17 16:43 18:16 21:23 WBC RBC Hgb Hct MCV MCH MCHC RDW Plt Count MPV Neutrophils % Lymphocytes % Monocytes % Eosinophils % Basophils % Sodium Potassium Chloride Carbon Dioxide Anion Gap BUN Creatinine Creat Clearance w eGFR POC Glucometer 255.84435 355.96676 Random Glucose Calcium Total Bilirubin AST ALT Alkaline Phosphatase Total Protein Albumin Urine Color Yellow Urine Appearance Clear Urine pH 5.0 Ur Specific [place] 1.016 Urine Protein 2+ H Urine Glucose (UA) 1+ H Urine Ketones Negative Urine Blood 1+ H Urine Nitrite Positive Urine Bilirubin Negative Urine Urobilinogen 2.0 Ur Leukocyte Esterase 1+ H Urine WBC (Auto) 21 Urine RBC (Auto) <1 Ur Epithelial Cells Rare Urine Bacteria Rare Hyaline Casts 2 Urine Mucus Few ASSESSMENT/PLAN: The patient is a 85 year old male with a PMH of DM type 2, HTN and CKD who presents to ED brought by ambulance after he was found outside [place] [facility] with hypoglycemia and was also found to have UTI. S/p fall due to hypoglycemia: -the pt had episode wih hypoglycemia related to taking Insulin and not eating anything. He takes 18 u in AM and 18 u in PM. 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 He has been complaining of progressive hearing loss but no signs of acute infection. The report is in the chart. -ID consulted Hypertension: -the pt doesn't take BP medictions. Please call his pharmacy in [place]. Dementia: -not on medications DM: -ISS ACS -BGM Q4h -HgA1C ordered F/E/N: n/no changes/Diabetic diet Dispo: placed on obs in med surg Pharmacy was closed. Please confirm his home medications. - Problem List - Problem (1) Hypoglycemia Code(s): E16.2 - HYPOGLYCEMIA, UNSPECIFIED (2) Hypertension Code(s): I10 - ESSENTIAL (PRIMARY) HYPERTENSION (3) Weakness Code(s): R53.1 - WEAKNESS Visit type - Emergency Visit Emergency Visit: Yes ED Registration Date: 04/30/17 Care time: The patient presented to the Emergency Department on the above date and was hospitalized for further evaluation of their emergent condition. - New Patient This patient is new to me today: Yes Date on this admission: 04/30/17 - Critical Care Critical Care patient: No Hospitalist Screening - Colonoscopy Questionnaire Colonoscopy Questionnaire: Colonoscopy Questionnaire - Patient: 50 - 75 years old and never had a screening colonoscopy: No History of colon or rectal polyps, or CA: No History of IBD, Crohn's disease or UC: No History of abdominal radiation therapy as a child: No - Relative: 1 with colon or rectal CA, or polyps at age 60 or younger: No Colon or rectal CA diagnosed at age 45 or younger: No Multiple relatives with colon or rectal CA: No - Outcome: Screening Result: Negative Screen
[2017-04-30] MEDS: HEPARIN NA (PORCINE) 5,000 UNITS/ML 1ML VIAL SQ SCH (22:32)
[2017-04-30] MEDS: INSULIN SLIDING SCALE (NOVOLOG) 1 VIAL SQ SCH (22:33)
[2017-04-30] MEDS ORDERED: SODIUM CHLORIDE 1,000 ML IV SCH (22:45)
[2017-04-30 23:14] VITALS: BMI 21.3
--- NOTE | 2017-05-01 03:49 | PN ---
Teaching Attending Note Name of Resident: Dulce Anderson ATTENDING PHYSICIAN STATEMENT I saw and evaluated the patient. Chart, data, imaging reviewed. I reviewed the resident's note and discussed the case with the resident. I agree with the resident's findings and plan as documented. SUBJECTIVE: 85 year old male with a PMH of dementia, DM type 2, HTN, CKD presented after he was found outside by bystanders. Pt was losing his balance and reports falling towards the ground but it is unclear if he actually fell. On EMS arrival his fingerstick was 27, and later went up to 41. He was given dextrose that improved his sugar to 186. Brought in to ER for observation. Patient is unsure of his home medications. Patient denied any dysuria. OBJECTIVE: Last Vital Signs Temp Pulse Resp BP Pulse Ox 98.1 F 85 20 156/90 98 04/30/17 21:25 04/30/17 21:25 05/01/17 03:00 04/30/17 21:25 05/01/17 03:00 General -NAD, oriented to person, place, but not time HEENT - at, nc, no sinus tenderness, no mastoid tenderness Neck -supple cv-s1+s2+ RRR Chest- CTA b/l Abdomen- soft, nt Neuro- no focal neurological deficits Abnormal Lab Results 04/30/17 04/30/17 04/30/17 16:37 16:37 16:43 WBC 11.4 H D Neutrophils % 85.3 H Creatinine 1.6 H Random Glucose 198 H D AST 11 L D Urine Protein 2+ H Urine Glucose (UA) 1+ H Urine Blood 1+ H Ur Leukocyte Esterase 1+ H CT of head - suggests that patient has 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 No acute bleeds or masses noted. ASSESSMENT AND PLAN: #Hypoglycemia- may be 2/2 to incorrect medication use -observation -fingers sticks q4hrs for now with insulin sliding scale -order diet -confirm with patient's pharmacy his medication regimen #Left sided mastoiditis on imaging - clinically asymptomatic -ID consult to determine whether or not pt needs antibiotics #No dysuria so no need to treat for for UTI #Social- patient requires case management social worker intervention for SNF placement or [employer] / visiting nurse assistance DVT ppx -heparin sc
[2017-05-01] MEDS: INSULIN SLIDING SCALE (NOVOLOG) 1 VIAL SQ SCH ×3 (06:17→22:41)
[2017-05-01] MEDS ORDERED: INSULIN (NOVOLOG) ASPART 100 UNITS/ML 10ML VIAL ONE (07:06)
[2017-05-01 07:41] LABS: EOS % 1.1 % (0-4.5); HEMATOCRIT 41.1 % (35.4-49); HEMOGLOBIN 13.4 GM/dL (11.7-16.9); LYMPH % 20.2 % (8-40); MCH 27.8 pg (25.7-33.7); MCHC 32.7 g/dl (32.0-35.9); MEAN CELL VOLUME 84.9 fl (80-96); MEAN PLT VOLUME 7.9 fl (7.5-11.1); MONO % 5.7 % (3.8-10.2); PLATELET COUNT 196 K/MM3 (134-434); RBC 4.84 M/mm3 (4.00-5.60); RDW 14.1 % (11.9-15.9); WHITE BLOOD COUNT 9.4 K/mm3 (4.0-10.0)
--- NOTE | 2017-05-01 08:04 | PN ---
Progress Note, Physician Chief Complaint: ID Full note dictated - Current Medication List Current Medications: Active Medications Heparin Sodium (Porcine) (Heparin -) 5,000 unit SQ BID BETH Last Admin: 04/30/17 22:32 Dose: 5,000 unit Sodium Chloride (Normal Saline -) 1,000 mls @ 50 mls/hr IV ASDIR BETH Stop: 05/01/17 22:31 Last Admin: 04/30/17 22:48 Dose: 50 mls/hr Insulin Aspart (Novolog Vial Sliding Scale -) 1 vial SQ ACHS BETH PRN Reason: Protocol Last Admin: 05/01/17 06:17 Dose: Not Given - Objective Vital Signs: Vital Signs Temperature 97.8 F 05/01/17 05:27 Pulse Rate 77 05/01/17 05:27 Respiratory Rate 20 05/01/17 06:13 Blood Pressure 137/88 05/01/17 05:27 O2 Sat by Pulse Oximetry (%) 97 05/01/17 06:13 Labs: CBC, BMP 05/01/17 06:00 Problem List - Problems (1) Mastoiditis Code(s): H70.90 - UNSPECIFIED MASTOIDITIS, UNSPECIFIED EAR (2) Hypoglycemia Code(s): E16.2 - HYPOGLYCEMIA, UNSPECIFIED (3) UTI (urinary tract infection) Code(s): N39.0 - URINARY TRACT INFECTION, SITE NOT SPECIFIED Assessment/Plan Microbiology Laboratory Tests 04/30/17 04/30/17 04/30/17 16:37 16:37 16:43 WBC 11.4 H D Hgb 14.7 Plt Count 199 Creatinine 1.6 H Urine WBC (Auto) 21 Assessment Hypoglycemic episode Finding of mastoiditis not an uncommon finding on HEAD CT I do not feel this needs to be treated UTI based on U/A Plan Would treat with Vantin 100mg bid 10 days for UTI ( will treat "mastoiditis") Refer to ENT for completeness outpt Urine c/s sent Tammie MCKENZIE
[2017-05-01 08:08] LABS: ANION GAP 11 (8-16); BLOOD UREA NITROGEN 18 mg/dL (7-18); CALCIUM 8.8 mg/dL (8.5-10.1); CHLORIDE 110 mmol/L (98-107); CO2 22 mmol/L (21-32); CREATININE 1.5 mg/dL (0.7-1.3); GLUCOSE,RANDOM 69 mg/dL (74-106); MAGNESIUM 2.2 mg/dL (1.8-2.4); PHOSPHOROUS 3.8 mg/dL (2.5-4.9); POTASSIUM 4.3 mmol/L (3.5-5.1); SODIUM 143 mmol/L (136-145)
[2017-05-01] MEDS ORDERED: CEFTRIAXONE 1 G/50 ML PREMIX 50 ML IVPB SCH (10:00)
[2017-05-01] MEDS: HEPARIN NA (PORCINE) 5,000 UNITS/ML 1ML VIAL SQ SCH ×3 (10:43→22:14)
--- NOTE | 2017-05-01 11:16 | PN ---
Progress Note (short form) - Note Progress Note: Subjective: no pain , no fever or chills, lives alone, have 2 sons and daughter . does not remember his med. denies dysuria . Objective: Vital Signs: Last Vital Signs Temp Pulse Resp BP Pulse Ox 97.8 F 77 20 137/88 97 05/01/17 05:27 05/01/17 05:27 05/01/17 06:13 05/01/17 05:27 05/01/17 06:13 Laboratory Results - last 24 hr 04/30/17 04/30/17 04/30/17 15:36 16:37 16:37 WBC 11.4 H D RBC 5.16 Hgb 14.7 Hct 44.0 MCV 85.3 MCH 28.4 MCHC 33.3 RDW 14.1 Plt Count 199 MPV 7.8 Neutrophils % 85.3 H Lymphocytes % 8.7 D Monocytes % 5.2 Eosinophils % 0.3 Basophils % 0.5 Sodium 141 Potassium 3.9 D Chloride 107 Carbon Dioxide 25 Anion Gap 9 BUN 17 D Creatinine 1.6 H Creat Clearance w eGFR 41.00 POC Glucometer 77.56324 Random Glucose 198 H D Calcium 9.0 Phosphorus Magnesium Total Bilirubin 0.5 D AST 11 L D ALT 14 Alkaline Phosphatase 81 D Total Protein 7.1 Albumin 3.5 Urine Color Urine Appearance Urine pH Ur Specific [place] Urine Protein Urine Glucose (UA) Urine Ketones Urine Blood Urine Nitrite Urine Bilirubin Urine Urobilinogen Ur Leukocyte Esterase Urine WBC (Auto) Urine RBC (Auto) Ur Epithelial Cells Urine Bacteria Hyaline Casts Urine Mucus 04/30/17 04/30/17 04/30/17 16:43 18:16 21:23 WBC RBC Hgb Hct MCV MCH MCHC RDW Plt Count MPV Neutrophils % Lymphocytes % Monocytes % Eosinophils % Basophils % Sodium Potassium Chloride Carbon Dioxide Anion Gap BUN Creatinine Creat Clearance w eGFR POC Glucometer 255.22054 355.04061 Random Glucose Calcium Phosphorus Magnesium Total Bilirubin AST ALT Alkaline Phosphatase Total Protein Albumin Urine Color Yellow Urine Appearance Clear Urine pH 5.0 Ur Specific [place] 1.016 Urine Protein 2+ H Urine Glucose (UA) 1+ H Urine Ketones Negative Urine Blood 1+ H Urine Nitrite Positive Urine Bilirubin Negative Urine Urobilinogen 2.0 Ur Leukocyte Esterase 1+ H Urine WBC (Auto) 21 Urine RBC (Auto) <1 Ur Epithelial Cells Rare Urine Bacteria Rare Hyaline Casts 2 Urine Mucus Few 04/30/17 05/01/17 05/01/17 22:31 06:00 06:00 WBC 9.4 RBC 4.84 Hgb 13.4 Hct 41.1 MCV 84.9 MCH 27.8 MCHC 32.7 RDW 14.1 Plt Count 196 MPV 7.9 Neutrophils % 72.0 Lymphocytes % 20.2 D Monocytes % 5.7 Eosinophils % 1.1 D Basophils % 1.0 Sodium 143 Potassium 4.3 Chloride 110 H Carbon Dioxide 22 Anion Gap 11 BUN 18 Creatinine 1.5 H Creat Clearance w eGFR POC Glucometer 299 Random Glucose 69 L D Calcium 8.8 Phosphorus 3.8 Magnesium 2.2 Total Bilirubin AST ALT Alkaline Phosphatase Total Protein Albumin Urine Color Urine Appearance Urine pH Ur Specific [place] Urine Protein Urine Glucose (UA) Urine Ketones Urine Blood Urine Nitrite Urine Bilirubin Urine Urobilinogen Ur Leukocyte Esterase Urine WBC (Auto) Urine RBC (Auto) Ur Epithelial Cells Urine Bacteria Hyaline Casts Urine Mucus 05/01/17 06:16 WBC RBC Hgb Hct MCV MCH MCHC RDW Plt Count MPV Neutrophils % Lymphocytes % Monocytes % Eosinophils % Basophils % Sodium Potassium Chloride Carbon Dioxide Anion Gap BUN Creatinine Creat Clearance w eGFR POC Glucometer 82 Random Glucose Calcium Phosphorus Magnesium Total Bilirubin AST ALT Alkaline Phosphatase Total Protein Albumin Urine Color Urine Appearance Urine pH Ur Specific [place] Urine Protein Urine Glucose (UA) Urine Ketones Urine Blood Urine Nitrite Urine Bilirubin Urine Urobilinogen Ur Leukocyte Esterase Urine WBC (Auto) Urine RBC (Auto) Ur Epithelial Cells Urine Bacteria Hyaline Casts Urine Mucus Physical Exam: NAD , awake, knows his location, age , not the year. dry MM, no facial droop, CV: RRR, no MRG Lungs: CTAB Ext: edema on L lateral ankkle . no erythema, no increased warmth. has TTP . no limited range of motion. Abd: sfot, NT, ND, NL BS Imaging: CT head and cxray images reviewed. Assessment/Plan: 86 y/o man with hhh/o DM , HTn , and CKD who lives a lone and presented as he was confused and on the floor . HE was found to have hypoglycemia 1- Hypoglycemia: possibly due to incorrect use of meds.? poor po intake . now GLc 222. he thinks he takes 18 units BID of insulin (does not know name) - hold long acting insulin now - give loose SSI to start coverage > 250 for today only - A1c to determine need fro insulin vs PO meds - will try to confirm meds 2- complicated UTI: - follwo urine cx - start vantin 3- L ankle swelling/tenderness : - check xray - denies hx of gout 4- CKD: cr at base line , but looks volume depleted. - gentle hydration 5- HTN: resume ramipril and will confirm DVT PX Visit type - Emergency Visit Emergency Visit: Yes ED Registration Date: 04/30/17 Care time: The patient presented to the Emergency Department on the above date and was hospitalized for further evaluation of their emergent condition. - New Patient This patient is new to me today: Yes Date on this admission: 05/01/17 - Critical Care Critical Care patient: No
--- NOTE | 2017-05-01 13:50 | CONS ---
INFECTIOUS DISEASE CONSULTATION DATE OF CONSULTATION: 05/01/2017 HISTORY OF PRESENT ILLNESS: This is an 86-year-old diabetic male who I am asked to see for evaluation of possible mastoiditis. The patient is a type 2 diabetic and takes insulin at home which he administers himself. He apparently had an incident in which he left his home and was observed to have lost his balance slumping over a car which was next to him. This has happened previously in the past and he notes that on the morning of admission he took his insulin but had not eaten anything. He apparently did not lose consciousness and denies any trauma to the head, seizures, tongue biting, dizziness, palpitations, or chest pain. On arrival his fingerstick glucose was 27. He was given dextrose with improvement of blood sugar to 186. He denies any headaches, fevers, chills, night sweats, abdominal pain, or urinary complaints. His admitting labs were notable for an elevated creatinine, a white count of 11.4, a urinalysis with 1+ leukocyte esterase, and 21 WBCs. On admission the patient had a CAT scan of the head performed. This showed no acute intraabdominal pathology but opacification of the left middle ear possibly consistent with a chronic otitis media. Additionally, opacification of the left mastoid air cells again suggesting acute or chronic mastoiditis. Partial mucosal opacification of the right mastoid air cells were also noted. PAST MEDICAL HISTORY: In addition right knee replacement. SOCIAL HISTORY: Former smoker. He states he lives alone. He does not drink. No recent travel. FAMILY HISTORY: Positive for coronary artery disease. REVIEW OF SYSTEMS: All systems reviewed and noncontributory. PHYSICAL EXAMINATION: General: He is an alert male in no acute distress. Vital Signs: Temperature was 97.8, pulse 77, blood pressure 137/88, and respirations 20. Neck: Supple without adenopathy. Lungs: Clear to percussion and auscultation. Hear: S1, S2 regular rhythm with a systolic murmur with a right second sternal border. Abdomen: Soft, nontender, and not distended. Extremities: Without clubbing, cyanosis, or edema. LABORATORY DATA: White count 9.4, hemoglobin 13.4, platelets 196. BUN 17, creatinine 1.6. Liver enzymes within normal limits. Urinalysis as previously noted. Urine culture pending. ASSESSMENT: An 86-year-old male known diabetic presents with near syncope in conjunction with hypoglycemia, known insulin dependent diabetic. He did not eat on the morning of admission. Incidentally noted on CAT scan a possible acute or choric mastoiditis a not uncommon incidental finding on head CT scans. He has no obvious ear complaints other than hearing. He has no evidence of acute infection at this time and I suspect the head CAT scan findings are more likely chronic. A second incidental finding is of a white cell suggesting possible urinary tract infection. This should be treated. Would recommend Vantin 100 mg b.i.d. for 10 days. Urine culture has been sent. Lastly for completeness would recommend an ENT evaluation which could be done as an outpatient regarding the CAT scan findings of mastoiditis. MINH DA SILVA M.D. [id number]
[2017-05-01] MEDS ORDERED: INSULIN SLIDING SCALE (NOVOLOG) 1 VIAL SQ SCH (16:30)
--- NOTE | 2017-05-01 18:41 | EKG ---
Test Reason : Blood Pressure : / mmHG Vent. Rate : 101 BPM Atrial Rate : 101 BPM P-R Int : 192 ms QRS Dur : 090 ms QT Int : 356 ms P-R-T Axes : 036 -43 027 degrees QTc Int : 461 ms SINUS TACHYCARDIA LEFT AXIS DEVIATION ABNORMAL ECG WHEN COMPARED WITH ECG OF 11-JAN-2017 16:25, PREMATURE ATRIAL COMPLEXES ARE NO LONGER PRESENT INCOMPLETE RIGHT BUNDLE BRANCH BLOCK IS NO LONGER PRESENT Confirmed by MD SIMRAN, CORRY ([id number]) on 05/01/2017 6:41:30 PM Referred By: Confirmed By:CORRY KHALIL MD
[2017-05-01] MEDS ORDERED: amLODIPine BESYLATE 5 MG TABLET (FP) PO ONE (19:15)
[2017-05-01] MEDS: CEFPODOXIME PROXETIL 100 MG TABLET PO SCH (22:15)
[2017-05-01] MEDS ORDERED: RAMIPRIL 2.5 MG CAPSULE (FP) PO ONE (23:15)
[2017-05-02] MEDS ORDERED: PT OWN MED DRAWER 7, Y5N ONE ×2 (06:09→21:14)
[2017-05-02] MEDS: INSULIN SLIDING SCALE (NOVOLOG) 1 VIAL SQ SCH ×4 (06:48→21:28)
[2017-05-02] MEDS: HEPARIN NA (PORCINE) 5,000 UNITS/ML 1ML VIAL SQ SCH ×3 (06:48→21:27)
[2017-05-02 08:09] LABS: CALCIUM 8.7 mg/dL (8.5-10.1); CHLORIDE 108 mmol/L (98-107); GLUCOSE,RANDOM 245 mg/dL (74-106); POTASSIUM 4.3 mmol/L (3.5-5.1); SODIUM 140 mmol/L (136-145)
[2017-05-02 08:11] LABS: ANION GAP 8 (8-16); BLOOD UREA NITROGEN 20 mg/dL (7-18); CO2 24 mmol/L (21-32); CREATININE 1.5 mg/dL (0.7-1.3)
[2017-05-02] MEDS: INSULIN DETEMIR 100 UNITS/ML MDV SQ SCH (09:11)
[2017-05-02] MEDS: CEFPODOXIME PROXETIL 100 MG TABLET PO SCH ×2 (09:53→21:28)
[2017-05-02] MEDS ORDERED: RAMIPRIL 2.5 MG CAPSULE (FP) PO SCH (10:00)
--- NOTE | 2017-05-02 13:26 | PN ---
Teaching Attending Note Name of Resident: Vance Newman ATTENDING PHYSICIAN STATEMENT I saw and evaluated the patient. I reviewed the resident's note and discussed the case with the resident. I agree with the resident's findings and plan as documented. SUBJECTIVE: No fever or chills. has L ankle pain which is worse compared to yesterday. No SOB , no CP OBJECTIVE: NAD , awake, knows his age and , but not location No facial droop, MMM CV: RRR, no MRG Lungs: CTAB Ext: edema on L lateral ankle is worse today with increased tenderness and bruising on lateral side ( bruising is new today ) Abd: soft , NT, ND, NL BS Imaging: CT head and cxray images reviewed. Assessment/Plan: 86 y/o man with h/o DM , HTn , and CKD who lives a lone and presented as he was confused and on the floor . HE was found to have hypoglycemia 1- Hypoglycemia: possibly due to incorrect use of meds. A1c 10 - start levemir 20 Am and cont SSI - monitor sugar throughout the day 2- Complicated UTI: - urine cx contaminated. will not repeat - cont vantin day 2/7 3- L ankle swelling/tenderness : - xray neg for Fx, - Ct scan obtained, no Fx. - possibly tendon injury . - will apply JASPREET wraps and ice 4- CKD: cr at base line cont to monitor . 5- HTN: ramipril confirmed . will increase dose to 5 mg DVT PX . PT eval. expect need for rehab.
--- NOTE | 2017-05-02 16:23 | PN ---
Addendum entered and electronically signed by Vance Newman, RESIDENT 05/02/17 18 :33: HgbA1c is 10 Original Note: Physical Exam: SUBJECTIVE: Patient seen and examined at bedside. seems consfused trying to mask his answer. complain of left ankle swelling and tenderness. denies nay fever, chills, N.V.D.C. OBJECTIVE: Vital Signs Period Temp Pulse Resp BP Sys/Bernal Pulse Ox Last 24 Hr 97.6 F-98.4 F 80-94 18-20 121-160/74-94 97-97 GENERAL: AAOx2 person and time but no location in no acute distress. HEAD: Normal with no signs of trauma. EYES: PERRL, EOMI, sclera anicteric, conjunctiva clear. ENT:dry mucous membranes. NECK: full range of motion, supple. LUNGS: Breath sounds equal, clear to auscultation bilaterally, no wheezes, no crackles, no accessory muscle use. HEART: Regular rate and rhythm, S1, S2 without murmur, rub or gallop. ABDOMEN: Soft, nontender, nondistended, normoactive bowel sounds, no guarding, no rebound, EXTREMITIES: 2+ pulses, warm, well-perfused, no edema. left ankle edema and tenderness. NEUROLOGICAL: Cranial nerves II through XII grossly intact. Normal speech, gait not observed. PSYCH: Normal mood, normal affect. SKIN: Warm, dry, Laboratory Results - last 24 hr 05/01/17 05/01/17 05/02/17 17:05 22:14 06:30 Sodium 140 Potassium 4.3 Chloride 108 H Carbon Dioxide 24 Anion Gap 8 BUN 20 H Creatinine 1.5 H POC Glucometer 334 276 Random Glucose 245 H D Calcium 8.7 05/02/17 05/02/17 05/02/17 06:47 12:15 12:16 Sodium Potassium Chloride Carbon Dioxide Anion Gap BUN Creatinine POC Glucometer 245 411 363 Random Glucose Calcium Active Medications Generic Name Dose Route Start Last Admin Trade Name Freq PRN Reason Stop Dose Admin Cefpodoxime Proxetil 100 mg 05/01/17 22:00 05/02/17 09:53 Vantin (Nf) - PO 100 mg BID BETH Administration Heparin Sodium (Porcine) 5,000 unit 05/01/17 14:00 05/02/17 13:21 Heparin - SQ 5,000 unit TID BETH Administration Insulin Aspart 1 vial 05/02/17 07:00 05/02/17 12:18 Novolog Vial Sliding Scale - SQ 6 unit ACHS BETH Administration Protocol Insulin Detemir 20 units 05/02/17 07:51 05/02/17 09:11 Levemir Vial SQ 20 units AM BETH Administration Ramipril 2.5 mg 05/02/17 10:00 05/02/17 09:52 Altace - PO 2.5 mg DAILY BETH Administration CBC, BMP 05/01/17 06:00 05/02/17 06:30 ASSESSMENT/PLAN: The patient is a 85 year old male with a PMH of DM type 2, HTN and CKD who presents to ED brought by ambulance after he was found outside [facility] with hypoglycemia and was also found to have UTI. S/p fall due to hypoglycemia,left ankle swelling , * glucose 245 today * Started on Long acting levemir 20 units Q AM * ISS TIDAC , BGM TID * hold oral agents * Hgba1c 11.3 will need to resume ISS upon DC . * CT head negative for acute pathology * Left ankle xray and CT negative for acute fx * COnsult ortho * Ice packing topical * not able to work with PT * fall precautions * pt is consfused will need rehab placement and visiting nurse uppon dc . 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 He has been complaining of progressive hearing loss but no signs of acute infection. The report is in the chart. * ID consulted no need for treatment now Hypertension:poor controlled * on ramipril 2.5 mg po daily , increased to 5 mg po daily Dementia: * cont Donepezil 5 mg po daily FUNMI on CKD * BUN/Cr 20/1.5 close to base line * IV fluids 75 CC/hr NS * Monitor * Avoid nephrotoxic agents F/E/N: * gentle hydration 75 CC/hr * E: monitor BUN/Cr * Low Sodium diet Dispo: * admit to obs med surg * pending ortho evaluation * Pending rehab placement Visit type - Emergency Visit Emergency Visit: Yes ED Registration Date: 04/30/17 Care time: The patient presented to the Emergency Department on the above date and was hospitalized for further evaluation of their emergent condition. - New Patient This patient is new to me today: Yes Date on this admission: 05/02/17 - Critical Care Critical Care patient: No - Discharge Referral Referred to [facility] No
[2017-05-02] MEDS: SODIUM CHLORIDE 1,000 ML IV SCH (16:58)
[2017-05-02] MEDS ORDERED: INSULIN (NOVOLOG) ASPART 100 UNITS/ML 10ML VIAL ONE (21:13)
[2017-05-03] MEDS: HEPARIN NA (PORCINE) 5,000 UNITS/ML 1ML VIAL SQ SCH ×2 (05:54→15:48)
[2017-05-03] MEDS: INSULIN SLIDING SCALE (NOVOLOG) 1 VIAL SQ SCH ×3 (06:33→18:10)
[2017-05-03] MEDS: INSULIN DETEMIR 100 UNITS/ML MDV SQ SCH (06:34)
[2017-05-03 07:27] LABS: HEMATOCRIT 40.4 % (35.4-49); HEMOGLOBIN 13.1 GM/dL (11.7-16.9); MCH 27.6 pg (25.7-33.7); MCHC 32.4 g/dl (32.0-35.9); MEAN CELL VOLUME 85.1 fl (80-96); MEAN PLT VOLUME 7.7 fl (7.5-11.1); PLATELET COUNT 182 K/MM3 (134-434); RBC 4.75 M/mm3 (4.00-5.60); WHITE BLOOD COUNT 7.3 K/mm3 (4.0-10.0)
[2017-05-03 08:02] LABS: ALBUMIN 3.2 g/dl (3.4-5.0); ANION GAP 8 (8-16); BLOOD UREA NITROGEN 22 mg/dL (7-18); CALCIUM 8.1 mg/dL (8.5-10.1); CHLORIDE 110 mmol/L (98-107); CO2 25 mmol/L (21-32); GLUCOSE,RANDOM 134 mg/dL (74-106); POTASSIUM 4.1 mmol/L (3.5-5.1); SGOT/AST 9 U/L (15-37); SGPT/ALT 8 U/L (12-78); SODIUM 143 mmol/L (136-145)
[2017-05-03 08:04] LABS: ALK PHOS 68 U/L (45-117); BILIRUBIN,TOTAL 0.9 mg/dL (0.2-1.0); CREATININE 1.3 mg/dL (0.7-1.3); TOT PROT 6.3 g/dl (6.4-8.2)
[2017-05-03] MEDS ORDERED: CLOTRIMAZOLE 1% CREAM 15 GM TUBE TP SCH (10:00)
[2017-05-03] MEDS ORDERED: ITRACONAZOLE 100 MG CAPSULE PO SCH (10:00)
[2017-05-03] MEDS ORDERED: RAMIPRIL 5 MG CAPSULE (FP) PO SCH ×2 (10:00→17:15)
[2017-05-03] MEDS ORDERED: RAMIPRIL 2.5 MG CAPSULE (FP) PO SCH (10:00)
[2017-05-03] MEDS ORDERED: DONEPEZIL HCL 5 MG TABLET (FP) PO SCH (10:00)
[2017-05-03] MEDS ORDERED: PT OWN MED DRAWER 7, Y5N ONE (10:37)
[2017-05-03] MEDS: CEFPODOXIME PROXETIL 100 MG TABLET PO SCH (10:39)
[2017-05-03 14:00] VITALS: TEMP 97.8
--- NOTE | 2017-05-03 15:24 | PN ---
Teaching Attending Note Name of Resident: Vance Newman ATTENDING PHYSICIAN STATEMENT I saw and evaluated the patient. I reviewed the resident's note and discussed the case with the resident. I agree with the resident's findings and plan as documented. SUBJECTIVE: no fever or chills. has no pain except for L ankle pain. OBJECTIVE: NAD , awake, knows his age and , and location No facial droop, MMM CV: RRR, no MRG Lungs: CTAB Ext: edema on L lateral ankle is better today. tenderness and bruising on lateral side Abd: soft , NT, ND, NL BS Assessment/Plan: 86 y/o man with h/o DM , HTN , and CKD who lives a lone and presented as he was confused and on the floor . HE was found to have hypoglycemia 1- Hypoglycemia: possibly due to incorrect use of meds. A1c 10 - cont levemir 20 Am and cont SSI - monitor sugar throughout the day 2- Complicated UTI: - cont vantin day 05/11 3- L ankle swelling/tenderness : - no Fx on CT and xray. - disabling pain , might need special splint or further w/u -ortho 4- CKD: cr improved with hydration cont to monitor . 5- HTN: cont 5 mg daily DVT PX . rehab bed available .
--- NOTE | 2017-05-03 16:05 | PN ---
Progress Note (short form) - Note Progress Note: Pt seen and examined. He is an 86 year old male who was admitted to the hospital for dementia related medicine complications. He denies any h/o trauma, however he is not a good historian. No h/o gout. PE Left ankle and foot are swollen, more over the dorsum No erythema, not hot, no fluid collections. + soft tissue edema + tenderness over dorsum of foot and lateral ankle, min tenderness medially Intact ROM in all planes, limited but possible, NVI No obvious signs of abscess, cellulitis, infection Xrays Left foot and ankle are nl, no acute pathology CT scan Left foot and ankle are nl, no acute pathology, no infection Imp Severe left ankle and foot pain, moderate swelling of unknown etiology. It is possible there was a trauma that he does not recall Rec Strict elevation ROM exercises WBAT NSAIDS if allowed We will follow
--- NOTE | 2017-05-03 17:54 | DS ---
Physical Exam: SUBJECTIVE: Patient seen and examined at bedside, no acute events over night . sugar and blood pressure are better controlled.still complain of left ankle pain. OBJECTIVE: Vital Signs Period Temp Pulse Resp BP Sys/Bernal Pulse Ox Last 24 Hr 97.7 F-98.6 F 68-83 18-20 125-159/60-93 95 PHYSICAL EXAM GENERAL: AAOx2 person and location , knows his age but no month or year, in NAD HEAD:NC/AT EYES: PERRL, EOMI, sclera anicteric, conjunctiva clear. ENT:moist mucous membranes. NECK: full range of motion, supple. LUNGS: Breath sounds equal, clear to auscultation bilaterally, no wheezes, no crackles, no accessory muscle use. HEART: Regular rate and rhythm, S1, S2 without murmur, rub or gallop. ABDOMEN: Soft, nontender, nondistended, normoactive bowel sounds, no guarding, no rebound, EXTREMITIES: 2+ pulses, warm, well-perfused, no edema. left ankle edema and tenderness doral foot and lateral aspect.. LROM due to pain. NEUROLOGICAL: Cranial nerves II through XII grossly intact. Normal speech, gait not observed. PSYCH: Normal mood, normal affect. SKIN: Warm, dry, LABS Laboratory Results - last 24 hr 05/02/17 05/03/17 05/03/17 21:26 05:49 06:00 WBC 7.3 RBC 4.75 Hgb 13.1 Hct 40.4 MCV 85.1 MCH 27.6 MCHC 32.4 RDW 14.0 Plt Count 182 MPV 7.7 Sodium Potassium Chloride Carbon Dioxide Anion Gap BUN Creatinine Creat Clearance w eGFR POC Glucometer 230 133 Random Glucose Calcium Total Bilirubin AST ALT Alkaline Phosphatase Total Protein Albumin 05/03/17 05/03/17 06:00 12:07 WBC RBC Hgb Hct MCV MCH MCHC RDW Plt Count MPV Sodium 143 Potassium 4.1 Chloride 110 H Carbon Dioxide 25 Anion Gap 8 BUN 22 H Creatinine 1.3 Creat Clearance w eGFR 52.10 POC Glucometer 215 Random Glucose 134 H D Calcium 8.1 L Total Bilirubin 0.9 D AST 9 L ALT 8 L D Alkaline Phosphatase 68 Total Protein 6.3 L Albumin 3.2 L CBC, BMP 05/03/17 06:00 05/03/17 06:00 HOSPITAL COURSE: Date of Admission:05/03/17 Date of Discharge: 05/03/17 is a a 85 year old male with a PMH of DM type 2, HTN and CKD who presents to ED brought by ambulance after he was found outside [facility] with hypoglycemia and was also found to have UTI.The fall due to hypoglycemia and may he his has left leg and cause left ankle swelling , Glucose has been adjusted , he will stop using all oral agents, he will stat using Levemir 20 units Q AM , and ISS TIDAC. HgbA1c is 10. will follow up with Dr.Tavdi Wilcox for diabetes control and need to be monitored daily , spoken with pt son personally and explained to him the necessity pf taken meds as prescribed and necessity to have visiting nurse after leaving [facility] to help with his meds as he has dementia. CT head negative for acute pathology .Left ankle xray and CT negative for acute fx orthopedics was consulted who recommended Tylenol as needed , straight raising the leg,Ice packing topical , PT as tolerated with fall precautions. Follow up with dr tellez if needed.pt was found to have Complicated UTI treated with vantin 100 mg po BID 3 days inpatient and 4 days out patient.for Hypertension poor controlled ,on ramipril 2.5 mg po daily at home , increased to 5 mg po daily might increased to 10 f needed .pt has dementia will cont Donepezil 5 mg po daily .pt has FUNMI on CKD , improved his BUN /Cr 20/1.5 close to base line treated with IV fluids 75 CC/hr NS . pt is hemodynamically stable and is will discharged to rehab facility. Minutes to complete discharge: 40 Discharge Summary Reason For Visit: UTI Current Active Problems Ankle strain (Acute) UTI (urinary tract infection) (Acute) Dementia (Chronic) Hypertension (Chronic) Mastoiditis (Chronic) Condition: Stable - Instructions Diet, Activity, Other Instructions: You were admitted to the hospital due to confusion and you were found to have low blood sugar. Your diabetic medication was adjusted (your long acting insulin was changed). You will now take Levemir 20 mg in the mornings only but will continue your short acting insulin before meals per sliding scale. please stop using oral diabetic meds(janumet and metformin) When you were confused you fell and must have injured your left ankle. It is swollen, painful and bruised. We did X ray and CT scan, which did not show fracture. Continue applying billie bandage, ice pack and avoid excessive weight bearing. Continue physical therapy. The injury may be a simple sprain, however if pain does not resolve in 3 weeks, ask Primary doctor to order MRI of ankle to evaluate for tears. You were found to have urinary tract infection and you were started on antibiotics, you need to continue taking them outpatient: Vantin for 4 more days You will be discharged to rehab facility to strengthen your muscles. Medications: Please take your meds as prescribed *Antibiotic Vantin 100 twice daily for another 4 days *Ramipril increased to 5 mg daily *Resume Donepizil 5 mg daily. *stop using oral agents for diabetes (Janumet), (glipizide ) *stop taking your mixed insulin 70/30 which you used to take twice a day *Start using long acting insulin Levemir 20 units every morning. *Start using short acting insulin before each meal and follow the following sliding scale: 101- 150.......0 units 151-200........2 201-250........4 251-300.......6 301-350.......8 351-400 ......10 >400 ....... 12 and call doctor Follow up: *Please follow up with your primary care physician Dr Sosa within one week. *Please follow up with barrel cap setter Katherine Erwin within one week to adjust your diabetic medications. *Follow with Dr. Tellez from orthopedics for your Left ankle sprain If you develop any fever, chills, low blood sugar , diffuse sweating you can call 911 or return to emergency room as soon as possible. Referrals: Messi Sosa MD [Staff Physician] - 1 Week Caesar Bills MD [House Staff] - 1 Week Enedina Franco MD [Staff Physician] - 1 Week Disposition: [facility] - Home Medications Comprehensive Discharge Medication List: Ambulatory Orders Donepezil HCl [Aricept -] 5 mg PO DAILY 01/11/17 Insulin (Levemir) [Levemir Vial] 20 units SQ AM ml 05/02/17 Ramipril [Altace] 5 mg PO DAILY #30 capsule 05/02/17 Cefpodoxime Proxetil [Vantin (Nf) -] 100 mg PO BID #10 tablet 05/03/17 Clotrimazole [Lotrimin -] 1 applic TP BID #1 tube 05/03/17 Insulin Sliding Scale [Novolog Vial Sliding Scale -] 1 vial SQ ACHS units 05/03 This patient is new to me today: No Emergency Visit: Yes ED Registration Date: 05/03/17 Care time: The patient presented to the Emergency Department on the above date and was hospitalized for further evaluation of their emergent condition. Critical Care patient: No - Discharge Referral Referred to [facility] No
[2017-05-03] MEDS: SODIUM CHLORIDE 1,000 ML IV SCH (18:15)
[2017-05-03] MEDS ORDERED: ACETAMINOPHEN 325 MG TABLET (FP) PO ONE (18:15)
[2017-05-03 18:52] VITALS: BP 155/91; PULSE 78
[2017-05-04] MEDS ORDERED: RAMIPRIL 5 MG CAPSULE (FP) PO SCH (10:00)
== END 2017-05-03 19:44 ==
LOC: JER 15:29 → JERBED 20:44 → INTOOBSV 20:44 → UNDOADMOB 20:44 → J7W 22:13 → JERBED 22:13 → J7W 05-03 10:54
PROVIDERS: ADMIT Internal Medicine; ATTEND Internal Medicine
PROC: 3E033GC Introduction of Other Therapeutic Substance into Peripheral Vein, Percutaneous Approach (ICD-10-PCS; principal; 2017-05-03)
PROC: 3E0337Z Introduction of Electrolytic and Water Balance Substance into Peripheral Vein, Percutaneous Approach (ICD-10-PCS; 2017-05-03)
PROC: 3E013GC Introduction of Other Therapeutic Substance into Subcutaneous Tissue, Percutaneous Approach (ICD-10-PCS; 2017-05-03)
PROC: 3E013VG Introduction of Insulin into Subcutaneous Tissue, Percutaneous Approach (ICD-10-PCS; 2017-05-03)
DX: N39.0 Urinary tract infection, site not specified (principal); H70.002 Acute mastoiditis without complications, left ear; I12.9 Hypertensive chronic kidney disease with stage 1 through stage 4 chronic kidney disease, or unspecified chronic kidney disease; E11.22 Type 2 diabetes mellitus with diabetic chronic kidney disease; E11.649 Type 2 diabetes mellitus with hypoglycemia without coma; N18.9 Chronic kidney disease, unspecified; N17.9 Acute kidney failure, unspecified; Z79.4 Long term (current) use of insulin; M25.472 Effusion, left ankle; I25.10 Atherosclerotic heart disease of native coronary artery without angina pectoris; I25.2 Old myocardial infarction; F03.90 Unspecified dementia, unspecified severity, without behavioral disturbance, psychotic disturbance, mood disturbance, and anxiety; N40.0 Benign prostatic hyperplasia without lower urinary tract symptoms; Z87.891 Personal history of nicotine dependence; S96.912A Strain of unspecified muscle and tendon at ankle and foot level, left foot, initial encounter; M25.572 Pain in left ankle and joints of left foot; W18.39XA Other fall on same level, initial encounter; Y93.01 Activity, walking, marching and hiking; Y92.488 Other paved roadways as the place of occurrence of the external cause; Z96.651 Presence of right artificial knee joint
CPT/HCPCS: 36415; 70450-TC; 71045-TC-FY; 73610-TC-LT-FY; 73700-TC-RT; 80048; 80053; 81003; 81015; 82962; 83036; 83735; 84100; 85025; 85027; 87086; 93005; 93010; 96361; 96372; 96374; 97116-GP; 97161-GP; 99284-25; G0378; J1644